=== PATIENT | male | born 1950 | race Caucasian/White ===

== ENCOUNTER 2017-04-05 09:50 | Emergency (ER) | payer OTHER, MEDICARE ==
[~2017-04-05] VITALS: Ht 170.2 cm; Wt 120.2 kg
--- NOTE | 2017-04-05 10:10 | ED NEURO DEFICIT/STROKE ---
History of Present Illness General Chief Complaint: Neuro Symptoms/ Deficit Stated Complaint: SLURRED SPEECH, LT SIDE WEAKNESS X 1 WEEK Source: patient, family Exam Limitations: no limitations Allergies Coded Allergies: No Known Allergies (04/05/17) Reconcile Medications Clopidogrel Bisulfate (Plavix) 75 MG TABLET 1 TAB PO DAILY CVA Glyburide 5 MG TABLET 5 MG PO DAILY DIABETES (Reported) Lisinopril 5 MG TABLET 5 MG PO DAILY HYPERTENSION (Reported) Metformin HCl 1,000 MG TABLET 1,000 MG PO DAILY DIABETES (Reported) Pioglitazone HCl 30 MG TABLET 30 MG PO DAILY DIABETES (Reported) Triage Note: PT TO ED FOR LEFT SIDED WEAKNESS AND SLURRED SPEECH FOR THE LAST WEEK. ALSO, SWOLLEN FEET AND ANKLES, DENIES DIFF BREATHING OR CP. +DIZZINESS. LEFT SIDED WEAKNESS NOTED IN TRIAGE. NO FACIAL DROOP. Triage Nurses Notes Reviewed? yes HPI: Patient is a 66-year-old male presents complaining of slurred speech, left upper extremity and left lower extremity weakness onset 6 days ago. Patient reports that he fell onto his left side 6 days ago prior to the onset of symptoms. Patient reports that he did not hit his head at that time. Symptoms have been continuous, patient thought the symptoms would resolve and when they didn't he presented today for evaluation. Increasing bilateral lower extremity edema over the past 6 days, dyspnea with minimal exertion. Pain is currently 0 out of 10. Patient denies headache, blurred vision (NATTY MUSTAFA) Vital Signs & Intake/Output Vital Signs & Intake/Output Vital Signs Date Time Temp Pulse Resp B/P B/P Pulse O2 O2 Flow FiO2 Mean Ox Delivery Rate 04/05 1537 98.3 90 18 113/54 94 Room Air 04/05 1153 97.7 80 18 132/75 99 04/05 1149 95 04/05 0956 99.2 89 20 139/82 91 Room Air Room Air Past History Travel History Traveled to [place] past 21 day No Medical History Any Pertinent Medical History? see below for history Cardiovascular: hypertension Musculoskeletal: MUSCULAR DISTROPHY Endocrine: diabetes, TYPE II Blood Disorders: NONE Cancer(s): NONE [employer]LL [employer]ICE/Reproductive: NONE Surgical History Surgical History: non-contributory Psychosocial History What is your primary language Nam[place]ian Tobacco Use: Quit >30 days ago ETOH Use: denies use Illicit Drug Use: denies illicit drug use Family History Hx Contributory? No (NATTY MUSTAFA) Review of Systems Review of Systems Constitutional: Denies: chills, fever. EENTM: Denies: blurred vision. Respiratory: Reports: short of breath. Denies: cough. Cardiovascular: Reports: peripheral edema. Denies: chest pain, syncope. GI: Denies: abdominal pain, nausea, vomiting. Genitourinary: Reports: no symptoms. Musculoskeletal: Denies: back pain, neck pain. Skin: Reports: no symptoms. Neurological/Psychological: Reports: see HPI. Hematologic/Endocrine: Reports: no symptoms. Immunologic/Allergic: Reports: no symptoms. (NATTY MUSTAFA) Physical Exam Physical Exam General Appearance: alert, awake Head: atraumatic, normal appearance Eyes: Bilateral: normal appearance, PERRL, EOMI. Ears, Nose, Throat: normal ENT inspection, moist mucous membrane, hearing grossly normal, pharynx normal Neck: normal inspection, supple, full range of motion Respiratory: normal breath sounds, no respiratory distress, lungs clear Cardiovascular: regular rate/rhythm (no appreciable murmur) Peripheral Pulses: 2+ dorsalis pedis (R), 2+ dorsalis pedis (L) Gastrointestinal: soft, non-tender Back: normal inspection, normal range of motion, no vertebral tenderness Extremities: 2+ bilateral lower extremity edema Psychiatric: awake, alert, oriented x 3 Cranial Nerves: normal hearing, PERRL, mild slurred speech Motor/Sensory: weak motor strength LUE (4/5), weak motor strength LLE (3/5) Skin: intact, normal color, warm/dry Core Measures CVA/TIA Diagnosis: Yes NIH Stroke Scale: Total 5 Date Last Known Well: 03/30/17 Neurological S/S of CVA: Left Hemiparesis, Slurred Speech Symptom Start Date: 03/30/17 Reason tPA not ordered+ Medical Contraindication Severe Sepsis Present: No Septic Shock Present: No Bedside Dysphagia Screen Bedside Swallow Eval Done: Yes Result of Evaluation: Pass (NATTY MUSTAFA) Progress Differential Diagnosis: Bhatti's Palsy, encephalitis, intracranial Hem., intracranial mass/tumor, stroke, subarachnoid Hem., vertebrobasilar insuff. Diagnostic Imaging: Viewed by Me: CT Scan, Ultrasound. Discussed w/RAD: CT Scan, Ultrasound. Radiology Impression: PATIENT: AMBIKA MEDRANO PRESENT AGE: 66 PATIENT ACCOUNT NO: [id number] : 49 LOCATION: [facility] ORDERING PHYSICIAN: NATTY GAMBOA SERVICE DATE: 04/05/17 EXAM TYPE: CAT - CT HEAD WO IV CONTRAST EXAMINATION: CT HEAD WITHOUT CONTRAST CLINICAL INFORMATION: Slurred speech, left upper and lower extremity weakness for 6 days COMPARISON: None TECHNIQUE: Contiguous axial imaging was performed from the skull base to vertex without intravenous administration of contrast. DLP: 701.91 mGy-cm FINDINGS: There is no evidence of acute intracranial hemorrhage. There is a region of hypoattenuation in the right basal ganglia and internal capsule, in keeping with an age-indeterminate infarct. Focal lacunar infarcts are also noted in the right basal ganglia and posterior limb of the left internal capsule. Chronic appearing lacunar infarcts are also suspected in the pura. No abnormal mass effect or midline shift is seen. Nguyen to white matter differentiation is well preserved. No extra-axial fluid collections are identified. The ventricles are normal in size. There is moderate periventricular white matter hypoattenuation consistent with chronic small vessel ischemic disease. The osseous structures and soft tissues are normal. The mastoid air cells and visualized portions of the paranasal sinuses are well aerated. IMPRESSION: No acute intracranial hemorrhage. Chronic appearing lacunar infarcts in the right basal ganglia, posterior left internal capsule, and pura. An additional larger region of hypoattenuation in the right basal ganglia/anterior internal capsule may also reflect an area of chronic infarct, though the possibility of a subacute infarct is difficult to entirely exclude given patient's symptoms. Findings are superimposed on the background of chronic small vessel ischemic disease. If clinically warranted, assessment with MRI may be helpful. DICTATED BY: CHRISTOPHER MALAVE MD DATE/TIME DICTATED:04/05/171139 ADVERTISING CONSULTANT: SHARIFA DATE/TIME TRANSCRIBED:04/05/171139 CONFIDENTIAL, DO NOT COPY WITHOUT APPROPRIATE AUTHORIZATION. <Electronically signed in Other Vendor System> SIGNED BY: CHRISTOPHER MALAVE MD 04/05/17 115, PATIENT: AMBIKA MEDRANO PRESENT AGE: 66 PATIENT ACCOUNT NO: [id number] : LOCATION: [facility] ORDERING PHYSICIAN: NATTY GAMBOA SERVICE DATE: 04/05/17 EXAM TYPE: US - US-EXT BILAT VENOUS DOPPLER EXAMINATION: US TRIPLEX OF LOWER EXTREMITIES, BILATERAL CLINICAL INFORMATION: 66-year-old male with bilateral lower extremity edema. COMPARISON: None TECHNIQUE: Color-flow triplex imaging with spectral analysis and compression Doppler were performed on the lower extremities. FINDINGS: Respiratory variation, normal compression and augmented flow are noted throughout the lower extremities. The visualized common femoral vein, superficial femoral vein, profunda femoral vein, popliteal vein and midcalf peroneal and posterior tibial venous segments show no evidence of deep venous thrombosis. There is no Smith's cyst. IMPRESSION: Normal triplex scan without evidence of deep venous thrombosis involving the lower extremities. DICTATED BY: ZACKARY BA DO DATE/TIME DICTATED:04/05/171115 ADVERTISING CONSULTANT:SHARIFA DATE/TIME TRANSCRIBED:04/05/171115 CONFIDENTIAL, DO NOT COPY WITHOUT APPROPRIATE AUTHORIZATION. <Electronically signed in Other Vendor System> SIGNED BY: ZACKARY BA DO 04/05/17 1121 CXR Impression: PATIENT: AMBIKA MEDRANO PRESENT AGE: 66 PATIENT ACCOUNT NO: [id number] : 49 LOCATION: [facility] ORDERING PHYSICIAN: NATTY GAMBOA SERVICE DATE: 04/05/17 EXAM TYPE: RAD - XRY- PORTABLE CHEST XRAY EXAMINATION: XR PORTABLE CHEST CLINICAL INFORMATION: Dyspnea with exertion. COMPARISON: None TECHNIQUE: Portable frontal view of the chest was obtained. FINDINGS: The lungs are in expiration with both lung bases not clearly depicted. Otherwise the upper lungs are clear. Heart size is enlarged with normal pulmonary vascularity. No gross bony abnormality seen. IMPRESSION: Lungs in expiration with both lung bases not clearly depicted. Cardiomegaly. DICTATED BY: EMMANUEL LIND MD DATE/TIME DICTATED:04/05/171227 ADVERTISING CONSULTANT :SHARIFA DATE/TIME TRANSCRIBED:04/05/171227 CONFIDENTIAL, DO NOT COPY WITHOUT APPROPRIATE AUTHORIZATION. <Electronically signed in Other Vendor System> SIGNED BY: EMMANUEL LIND MD 04/05/17 1233 Initial ED EKG: nomral sinus rhythm 83 bpm, low voltage in lead II. q waves in III and avf. nonspecific st/t wave abnormalities. (SILVIA GAMBOA,NATTY) Plan of Care: Orders Procedure Date/time Status Consistent Carbohydrate 1 04/05 L Active Telemetry/Truck Body Builder 04/05 1021 Active FingerStick- Glucose 04/05 1021 Active TROPONIN LEVEL 04/05 1021 Complete PARTIAL THROMBOPLASTIN TIME 04/05 1021 Complete PROTHROMBIN TIME 04/05 1021 Complete COMPREHENSIVE METABOLIC PANEL 04/05 1021 Complete CBC WITHOUT DIFFERENTIAL 04/05 1021 Complete B-TYPE NATRIURETIC PEP (BNP) 04/05 1021 Complete EKG 04/05 1021 Active Laboratory Tests 04/05/17 1135: Anion Gap 13, Estimated GFR > 60, BUN/Creatinine Ratio 31.4 H, Glucose 84, Calcium 9.6, Total Bilirubin 0.8, AST 16 L, ALT 31, Alkaline Phosphatase 53, Troponin I < 0.01, Qno-N-Yfreztqpqqh Pept 83.8, Total Protein 6.9, Albumin 4.0, Globulin 2.9, Albumin/Globulin Ratio 1.4, PT 13.5 H, INR 1.29 H, APTT 33, CBC w Diff NO MAN DIFF REQ, RBC 5.04, MCV 89.1, MCH 30.0, RDW 13.8, MPV 7.3 L, Gran % 72.8, Lymphocytes % 18.1 L, Monocytes % 6.9, Eosinophils % 1.8, Basophils % 0.4, Absolute Granulocytes 5.6, Absolute Lymphocytes 1.4, Absolute Monocytes 0.5 , Absolute Eosinophils 0.1, Absolute Basophils 0, PUBS MCHC 33.7 1210: Results of CT scan and ultrasound discussed with patient and his . reports that patient's slurred speech has been gradually improving over the past 6 days. Continues with moderate slurred speech. Discussed with Dr. Bhatti. 1325: Discussed with Dr. Campos: can place on plavix 75mg daily for 2 weeks and have patient follow up in the office. 1345: Discussed with Dr. Lennon: comfortable with plan for adding plavix and outpatient follow up if patient appears clinically stable. Plan discussed with patient and his . Results discussed. Patient ambulating with his walker. Appears stable for outpatient follow up. (SILVIA GAMBOA,NATTY) Departure Departure Time of Disposition: 1541 Disposition: HOME OR SELF CARE Condition: Stable Clinical Impression Primary Impression: CVA (cerebral vascular accident) Qualifiers: CVA mechanism: unspecified Qualified Code: I63.9 - Cerebral infarction, unspecified Referrals: DAMIAN MARTINEZ,DINESH LENNON MD,Thierno HALEY (PCP/Family) Additional Instructions: Follow up with Dr. Campos(neurologist) and with Dr. Lennon for further evaluation. Call today for appointments. Continue taking the 81 mg of Aspirin daily. Take the Plavix as directed. Return to the ER if increasing weakness, numbness, change in speech, change in vision, abnormal bleeding or worsening of symptoms. Departure Forms: Customer Survey General Discharge Information Prescriptions: Current Visit Scripts Clopidogrel Bisulfate (Plavix) 1 TAB PO DAILY #14 TAB (NATTY MUSTAFA) PA/CORK GRINDER Co-Sign Statement Statement: ED Attending supervision documentation- [x] I saw and evaluated the patient. I have also reviewed all the pertinent lab results and diagnostic results. I agree with the findings and the plan of care as documented in the PA's/CORK GRINDER's documentation. [] I have reviewed the ED Record and agree with the PA's/CORK GRINDER's documentation. [] Additions or exceptions (if any) to the PAs/CORK GRINDER's note and plan are summarized below: [] (JEANNETTE MARTINEZ,RENU Aggarwal)
[2017-04-05] MEDS ORDERED: GLYBURIDE5 M1 PO (10:32)
[2017-04-05] MEDS ORDERED: METFORMIN HCL1000 M1 PO (10:33)
[2017-04-05] MEDS ORDERED: PIOGLITAZONE HC30 M1 PO (10:34)
[2017-04-05] MEDS ORDERED: LISINOPRIL5 M1 PO (10:35)
--- NOTE | 2017-04-05 11:21 | ULTRASOUND REPORT ---
EXAMINATION: US TRIPLEX OF LOWER EXTREMITIES, BILATERAL CLINICAL INFORMATION: 66-year-old male with bilateral lower extremity edema. COMPARISON: None TECHNIQUE: Color-flow triplex imaging with spectral analysis and compression Doppler were performed on the lower extremities. FINDINGS: Respiratory variation, normal compression and augmented flow are noted throughout the lower extremities. The visualized common femoral vein, superficial femoral vein, profunda femoral vein, popliteal vein and midcalf peroneal and posterior tibial venous segments show no evidence of deep venous thrombosis. There is no Smith's cyst. IMPRESSION: Normal triplex scan without evidence of deep venous thrombosis involving the lower extremities.
--- NOTE | 2017-04-05 11:51 | CT SCAN REPORT ---
EXAMINATION: CT HEAD WITHOUT CONTRAST CLINICAL INFORMATION: Slurred speech, left upper and lower extremity weakness for 6 days COMPARISON: None TECHNIQUE: Contiguous axial imaging was performed from the skull base to vertex without intravenous administration of contrast. DLP: 701.91 mGy-cm FINDINGS: There is no evidence of acute intracranial hemorrhage. There is a region of hypoattenuation in the right basal ganglia and internal capsule, in keeping with an age-indeterminate infarct. Focal lacunar infarcts are also noted in the right basal ganglia and posterior limb of the left internal capsule. Chronic appearing lacunar infarcts are also suspected in the pura. No abnormal mass effect or midline shift is seen. Nguyen to white matter differentiation is well preserved. No extra-axial fluid collections are identified. The ventricles are normal in size. There is moderate periventricular white matter hypoattenuation consistent with chronic small vessel ischemic disease. The osseous structures and soft tissues are normal. The mastoid air cells and visualized portions of the paranasal sinuses are well aerated. IMPRESSION: No acute intracranial hemorrhage. Chronic appearing lacunar infarcts in the right basal ganglia, posterior left internal capsule, and pura. An additional larger region of hypoattenuation in the right basal ganglia/anterior internal capsule may also reflect an area of chronic infarct, though the possibility of a subacute infarct is difficult to entirely exclude given patient's symptoms. Findings are superimposed on the background of chronic small vessel ischemic disease. If clinically warranted, assessment with MRI may be helpful.
[2017-04-05 11:58] LABS: PT 13.5 SEC (9.4-12.5); PTT 33 SEC (25-37)
[2017-04-05 12:10] LABS: ABSOLUTE BASOPHIL COUNT 0 /CUMM (0.0-0.2); ABSOLUTE EOSINOPHIL COUNT 0.1 /CUMM (0.0-0.7); ABSOLUTE GRANULOCYTE CT 5.6 /CUMM (1.4-6.5); ABSOLUTE LYMPH COUNT 1.4 /CUMM (1.2-3.4); ABSOLUTE MONOCYTE COUNT 0.5 /CUMM (0.10-0.60); BASOPHIL % 0.4 % (0.0-2.0); EOSINOPHIL % 1.8 % (0-5); GRANULOCYTE % 72.8 % (42.2-75.2); HEMATOCRIT 44.9 % (42-52); MEAN CORPUSCULAR HGB CONC 33.7 G/DL (33.0-37.0); MEAN CORPUSCULAR VOLUME 89.1 FL (80.0-94.0); MEAN PLATELET VOLUME 7.3 FL (7.4-10.4); PLATELET COUNT 203 /CUMM (130-400); RBC DISTRIBUTION WIDTH 13.8 % (11.5-14.5); RED BLOOD CELL CT 5.04 /CUMM (4.70-6.10); WHITE BLOOD CELL COUNT 7.7 /CUMM (4.8-10.8)
--- NOTE | 2017-04-05 12:33 | RADIOLOGY REPORT ---
EXAMINATION: XR PORTABLE CHEST CLINICAL INFORMATION: Dyspnea with exertion. COMPARISON: None TECHNIQUE: Portable frontal view of the chest was obtained. FINDINGS: The lungs are in expiration with both lung bases not clearly depicted. Otherwise the upper lungs are clear. Heart size is enlarged with normal pulmonary vascularity. No gross bony abnormality seen. IMPRESSION: Lungs in expiration with both lung bases not clearly depicted. Cardiomegaly.
--- NOTE | 2017-04-05 15:31 | ULTRASOUND REPORT ---
EXAMINATION: US DUPLEX CAROTID AND VERTEBRAL CLINICAL INFORMATION: 66-year-old male with slurred speech. COMPARISON: None TECHNIQUE: Real-time ultrasound and Doppler techniques (integrating B-mode 2D vascular images, Doppler spectral analysis and color flow Doppler imaging) were utilized to interrogate the extracranial carotid and vertebral arteries bilaterally. The degree of stenosis determined by criteria similar to NASCET. FINDINGS: 1. On the right: A small amount of plaque is present at the carotid bifurcation but velocity measurements are normal and do not suggest a stenosis of greater than 50% diameter reduction in the right ICA. The vertebral artery is patent demonstrating antegrade flow. The common carotid artery velocity is 108 cm/s. The internal carotid artery velocities are 80 cm/s systolic and 16 cm/s diastolic. The external carotid artery velocity is 157 cm/s. Mild right external carotid artery stenosis. 2. On the left: Small amount of plaque is present at the carotid bifurcation but velocity measurements are normal and do not suggest a stenosis of greater than 50% diameter reduction in the left ICA. The vertebral artery is patent demonstrating antegrade flow. The common carotid artery velocity is 90 cm/s. The internal carotid artery velocities are 82 cm/s systolic and 18 cm/s diastolic. The external carotid artery velocity is 116 cm/s. IMPRESSION: 1. Plaque is present in the internal carotid arteries but velocity measurements are normal and there is no evidence to suggest a hemodynamically significant stenosis of greater than 50% diameter reduction. 2. Mild right external carotid artery stenosis.
[2017-04-05 15:37] VITALS: BP 113/54
[2017-04-05] MEDS ORDERED: PLAVIX75 M1 PO (15:40)
== END 2017-04-05 15:52 ==
LOC: ERH 09:50
PROVIDERS: Physician Assistant
DX: I63.9 Cerebral infarction, unspecified (principal); Z87.891 Personal history of nicotine dependence; R60.0 Localized edema; R06.00 Dyspnea, unspecified
CPT/HCPCS: 1263; 93005; 93010; 93970